=== PATIENT | male | born 1945 | race Caucasian/White ===

== ENCOUNTER 2017-10-03 21:54 | Emergency (ER) | payer MEDICARE, BC, OTHER ==
[2017-10-03 22:02] VITALS: BP 143/70
--- NOTE | 2017-10-03 22:08 | UC ---
Laceration HPI - HPI Summary HPI Summary: shut 2,3,4 fingers in garage door, - History Of Current Complaint Chief Complaint: UCTrauma Stated Complaint: SMASHED FINGERS Time Seen by Provider: 10/03/17 21:57 Hx Obtained From: Patient Laceration Location: Hand - shut 2,3,4 fingers distally in garage door Mechanism Of Injury: Blunt Trauma Onset/Duration: Sudden Onset Severity: Mild Aggravating Factors: Nothing - Allergies/Home Medications Allergies/Adverse Reactions: Allergies Allergy/AdvReac Type Severity Reaction Status Date / Time codeine Allergy Nausea And Verified 10/03/17 22:03 Vomiting Home Medications: Home Medications Aspirin [Aspir-Low] 1 tab PO DAILY 10/03/17 [History Confirmed 10/03/17] PMH/Surg Hx/FS Hx/Imm Hx Previously Healthy: Yes - Surgical History Surgical History: None - Family History Known Family History: Positive: None - Social History Occupation: Retired Lives: With Family Alcohol Use: None Substance Use Type: None Smoking Status (MU): Former Smoker - Immunization History Most Recent Influenza Vaccination: fall 2012 Review of Systems Constitutional: Negative Skin: Negative Eyes: Negative ENT: Negative Respiratory: Negative Cardiovascular: Negative Gastrointestinal: Negative Genitourinary: Negative Motor: Negative Neurovascular: Negative Musculoskeletal: Arthralgia - 2,3,4 finger distally Neurological: Negative Psychological: Negative Is Patient Immunocompromised?: No All Other Systems Reviewed And Are Negative: Yes Physical Exam Triage Information Reviewed: Yes Appearance: Well-Appearing, No Pain Distress, Well-Nourished Vital Signs Reviewed: Yes Eye Exam: Normal Eyes: Positive: Conjunctiva Clear ENT Exam: Normal ENT: Positive: Normal ENT inspection, Hearing grossly normal. Negative: Trismus , Muffled voice, Hoarse voice Dental Exam: Normal Neck exam: Normal Neck: Positive: Supple, Nontender Respiratory Exam: Normal Respiratory: Positive: Chest non-tender, No respiratory distress, No accessory muscle use Cardiovascular Exam: Normal Cardiovascular: Positive: RRR, Pulses Normal, Brisk Capillary Refill Musculoskeletal Exam: Normal Musculoskeletal: Positive: Strength Intact, ROM Intact, No Edema Neurological Exam: Normal Neurological: Positive: Alert Psychological Exam: Normal Psychological: Positive: Normal Response To Family Skin Exam: Normal Skin: Positive: significant lesion(s) - blood areound 4 th finger nail , small laceration 3rd finger dip on palm surface about 1 cm long Laceration Repair - Laceration Repair 1 Description: Linear Laceration Size After Repair: Length (cm) - 1, Width (mm) - 2, Depth (mm) - 1 Modified For Repair: No Diagnostics - Radiology No standard instances Xray Interpretation: Positive (See Comments) - 3rd finger tuft fx Radiology Interpretation Completed By: ED Physician Laceration Course/Dx - Course/Dx Course Of Treatment: glue care to laceration of 3rd finger, splint for 3rd finger fx, 2nd finger subungual hematoma, 4th finger nail avulsion, keflex, splint 3/4 finger/update tetanus follow BP with pcp - Differential Dx - Laceration/Wound Provider Diagnoses: elevated bld pressure without dx of hypertension, laceration and tram fracture distal right 3rd finger, nail avulsion right 4th finger, subungal hematomaa right 2nd finger Discharge - Sign-Out/Discharge Documenting (check all that apply): Patient Departure - Discharge Plan Condition: Stable Disposition: HOME Prescriptions: Cephalexin CAP* [Keflex CAP*] 500 mg PO QID #20 cap Patient Education Materials: Subungual Hematoma (ED), Finger Fracture (ED), Nail Avulsion (ED), Skin Adhesive Care (ED), Hypertension (ED), Ibuprofen (By mouth), Ice Pack Application (ED) Referrals: [facility] [place] PHYSICIAN REFERRAL [Outside] - 2 Weeks Salvatore Canchola MD [Medical Doctor] - 5 Days - Billing Disposition and Condition Condition: STABLE Disposition: Home
[2017-10-03] MEDS ORDERED: Tetan/Diph/Pertus SYR(Tdap)* 0.5 ML SYR(BOOSTRIX) use SYR IM ONE (22:25)
[2017-10-03] MEDS ORDERED: Cephalexin CAP* 500 MG PO ONE (22:27)
--- NOTE | 2017-10-04 08:03 | RAD ---
INDICATION: Crush injury RIGHT second through fourth fingers. COMPARISON: No relevant prior exams available on the [facility] for comparison. TECHNIQUE: AP, lateral, and oblique views RIGHT hand. REPORT: Nondisplaced nonarticular fracture involving the tuft of the third distal phalanx. Negative for additional fracture or dislocation. 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 Soft tissue swelling most prominent involving the second through fourth fingers. IMPRESSION: #. Nondisplaced nonarticular fracture involving the tuft of the third distal phalanx.
== END 2017-10-03 22:46 | disposition home or self-care (01) ==
LOC: UCEAST 21:54
DX: S61.212A Laceration without foreign body of right middle finger without damage to nail, initial encounter (principal); S62.632A Displaced fracture of distal phalanx of right middle finger, initial encounter for closed fracture; S61.304A Unspecified open wound of right ring finger with damage to nail, initial encounter; S60.021A Contusion of right index finger without damage to nail, initial encounter; R03.0 Elevated blood-pressure reading, without diagnosis of hypertension; Z88.5 Allergy status to narcotic agent; Z79.82 Long term (current) use of aspirin; Z87.891 Personal history of nicotine dependence; W23.0XXA Caught, crushed, jammed, or pinched between moving objects, initial encounter; Y92.59 Other trade areas as the place of occurrence of the external cause
CPT/HCPCS: 12001; 90471; 90715; 99212; A9270-GY; G0463

== ENCOUNTER 2019-03-03 09:11 | Emergency (ER) | payer MEDICARE, OTHER ==
--- OUTSIDE RECORDS SUMMARY | 2019-03-03 09:15 | XMS REPORT | Continuity of Care Document ---
:1945 External Reference #:[id number] Author Name Katie Diaz O.D. Address [address] [place] [address] Problems Description No Active Problems Social History Type Date Description Comments Sex Unknown ETOH Use Rarely consumes alcohol Tobacco Use Start: Unknown Patient has never smoked Smoking Status Reviewed: 02/28/19 Patient has never smoked Allergies, Adverse Reactions, Alerts Active Allergies Reaction Severity Comments Date Codeine 02/28/2019 Medications Active Medications SIG Qnty Indications Ordering Provider Date Aspirin [address] History Medications No Active Medications Unknown 02/28/2019 - 02/28/2019 Immunizations Description No Information Available Vital Signs Description No Information Available Results Description No Information Available Procedures Description No Information Available Medical Devices Description No Information Available Encounters Description No Information Available Assessments Date Code Description Provider 02/28/2019 H25.813 Combined forms of age-related cataract, Katie Diaz O.D. bilateral 02/28/2019 H43.813 Vitreous degeneration, bilateral Katie Diaz O.D. 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 risk, right eye Plan of Treatment 02/28/2019 - Katie Diaz O.D.H25.813 Combined forms of age-related cataract, [id number] Vitreous degeneration, bilateralComments:You have a Posterior Vitreous Detachment. Please read the pamphlet that was given to you. If you have any changes in your floaters or flashing lights, please contact this office.H40.021 Open angle with borderline findings, high risk, right eyeFollow up:6 week iop check and vf 30-2 Functional Status Description No Information Available Mental Status Description No Information Available Referrals Description No Information Available
--- NOTE | 2019-03-03 09:20 | UC ---
Upper Extremity HPI - HPI Summary HPI Summary: CHIEF COMPLAINT and HPI: This is a 74 yo male with left forearm discomfort. This condition began approximately 2 weeks ago when he was spotting his granddaughter. The patient notes that the pain is increased with extension at the wrist and with flexion of the biceps muscle. The pain is located midway on the left forearm in the area of the extensor muscles and tendons. He rates the pain as 4/10. He does have full range of motion at the shoulder, elbow and wrist of his left upper extremity. The pain is worsened with particular movements and is minimally present if at all when resting the arm. VITAL SIGNS & SaO2 REVIEWED. Within normal limits unless noted here. 135/79 NURSES NOTE REVIEWED.pt had been using his left arm to spot his granddaughter, and hurt his left forearm, he heard a crack, and has had pain since, with movement. no numbness or tingling. - History of Current Complaint Stated Complaint: ARM INJURY Time Seen by Provider: 03/03/19 09:17 Hx Obtained From: Patient - Allergies/Home Medications Allergies/Adverse Reactions: Allergies Allergy/AdvReac Type Severity Reaction Status Date / Time codeine Allergy Nausea And Verified 03/03/19 09:23 Vomiting PMH/Surg Hx/FS Hx/Imm Hx - Additional Past Medical History Additional PMH: PAST MEDICAL HISTORY- CHRONIC and RECURRENT HEALTH PROBLEM LIST REVIEWED. Information relevant to present complaint: noncontributory to the present complaint VISIT HISTORY REVIEWED. MEDICATIONS & ALLERGIES REVIEWED.allergic to codeine HYPERTENSION STATUS:. No antihypertensive medications FAMILY HISTORY: cardiovascular disease SOCIAL HISTORY: Patient is retired, nonsmoker, lives with his . Previously Healthy: Yes - Surgical History Surgical History: None - Family History Known Family History: Positive: None - Social History Alcohol Use: None Substance Use Type: None Smoking Status (MU): Former Smoker - Immunization History Most Recent Influenza Vaccination: fall 2012 Review of Systems All Other Systems Reviewed And Are Negative: Yes Constitutional: Positive: Negative Respiratory: Positive: Negative Cardiovascular: Positive: Negative Gastrointestinal: Positive: Negative Musculoskeletal: Positive: Arthralgia, Myalgia - left forearm, over proximal extensor tendons Is Patient Immunocompromised?: No Physical Exam - Summary Physical Exam Summary: Appearance: The patient is well-appearing, is in no pain or distress, and is well-nourished. Eyes: Conjunctiva are clear. Pupils are equal and reactive to light and accommodation. Extra ocular muscle movement is intact. ENT: The hearing is grossly normal, the pharynx is normal, and the TMs are normal. There is no muffled or hoarse voice. No stridor. Neck: The neck is supple and there is no lymphadenopathy. Respiratory: The chest is non-tender to palpation and without crepitus. The lungs are clear, there are normal breath sounds, and there is no respiratory distress. No wheezes, rales or rhonchi. Cardiovascular: Heart sounds reveal a regular rate and rhythm. There are no clicks, rubs or murmurs. There are no carotid bruits or thrills. Circulation is grossly intact. Abdomen: The abdomen is soft and nontender. There is no organomegaly. Bowel sounds are present and within normal limits. No point tenderness at McBurneys point. No CVA tenderness. Musculoskeletal: Strength is intact. The patient moves all extremities. Examination of the left upper extremity shows a normal shoulder, elbow and wrist with full range of motion. Particular motions can elicit mild discomfort in the left forearm. This includes rotation, flexion and extension at the wrist. The discomfort is primarily located over the proximal extensor tendons of the left forearm. Neurological: The patient is alert. Motor and sensory are examination grossly intact. Speech is normal. Psychological: The patient displays age appropriate behavior, and is conversant. GCS=15. Skin: Negative for rashes. Triage Information Reviewed: Yes Upper Extremity Course/Dx - Course Course Of Treatment: This is a 74 yo male with left forearm discomfort. This condition began approximately 2 weeks ago when he was spotting his granddaughter. The patient notes that the pain is increased with extension at the wrist and with flexion of the biceps muscle. The pain is located midway on the left forearm in the area of the extensor muscles and tendons. He rates the pain as 4/10. He does have full range of motion at the shoulder, elbow and wrist of his left upper extremity. The pain is worsened with particular movements and is minimally present if at all when resting the arm. Examination of the left upper extremity shows a normal shoulder, elbow and wrist with full range of motion. Particular motions can elicit mild discomfort in the left forearm. This includes rotation, flexion and extension at the wrist. The discomfort is primarily located over the proximal extensor tendons of the left forearm. x-ray reading:negative for fracture. Diagnosis is left forearm strain. - Differential Dx/Diagnosis Differential Diagnosis/HQI/PQRI: Contusion, Strain, Sprain Provider Diagnosis: Muscle strain of left forearm Discharge ED - Sign-Out/Discharge Documenting (check all that apply): Patient Departure All imaging exams completed and their final reports reviewed: Yes - Discharge Plan Condition: Stable Disposition: HOME Patient Education Materials: Muscle Strain (DC) Referrals: No Primary Care Phys,NOPCP [Primary Care Provider] - Additional Instructions: WE DISCUSSED: PLEASE SEEK CARE AT THE EMERGENCY DEPARTMENT IF SYMPTOMS WORSEN OR IF NEW SYMPTOMS DEVELOP. FOLLOW UP WITH YOUR PRIMARY CARE PHYSICIAN IF CONDITION CONTINUES BEYOND 3 DAYS WITHOUT IMPROVEMENT. YOUR DIAGNOSIS IS: STRAIN OF MUSCLES AND TENDONS OF THE LEFT FOREARM; NO BROKEN BONES SEEN. YOUR PRESCRIPTION RECOMMENDATION IS:NONE. OTHER INSTRUCTIONS: Hypertension Discharge Instructions: Your blood pressure reading today was 139/79, indicating mild HYPERTENSION. Follow-up with your primary care provider within 4 weeks for blood pressure check and appropriate recommendations and treatment, as needed. FOR PAIN AND/OR SLEEP: For pain: Ibuprofen (Motrin and other brand names) 400-600mg PLUS acetaminophen (Tylenol and other brand names) 500mg - 1000mg every 8 hours. Using heat or ice for discomfort: Warm, moist heat to aching or painful muscles, tendons or ligaments in the morning, or if you are stiff after decreased movement such as sleep or sitting for a long time. Use ice for sharp pain after exercise, prolonged standing or physical stress from repetitive work or sports. Put ice or cold inside a fabric protection so the ice is not directly against your skin. Use heat or ice for 10-15 minutes every 2-4 hours until you feel better or whenever you need to loosen your muscles or deal with acute pain. - Billing Disposition and Condition Condition: STABLE Disposition: Home
[2019-03-03 09:23] VITALS: BP 135/79
== END 2019-03-03 10:45 | disposition home or self-care (01) ==
LOC: UCEAST 09:11
DX: S56.912A Strain of unspecified muscles, fascia and tendons at forearm level, left arm, initial encounter (principal); Z88.5 Allergy status to narcotic agent; Z87.891 Personal history of nicotine dependence; X58.XXXA Exposure to other specified factors, initial encounter; Y92.9 Unspecified place or not applicable
CPT/HCPCS: 99211; G0463